=== PATIENT | male | born 1975 | race Caucasian/White ===

== ENCOUNTER 2017-10-01 07:23 | Day surgery (SDC) | payer OTHER ==
[~2017-10-01] VITALS: Ht 188 cm; Wt 89.4 kg
[~2017-10-01 07:23] MED LIST: Multivitamin1 EAC1 PO; SUCR1 PO; ZOLM5 PO
== END 2017-10-01 22:52 | disposition home or self-care (01) ==
LOC: ORSCMMR 07:23 → ORD 08:45 → ORSCMMR 08:45
PROVIDERS: Surgery
PROC: 0YU50JZ Supplement Right Inguinal Region with Synthetic Substitute, Open Approach (ICD-10-PCS; principal; 2017-10-01 08:45)
DX: K40.90 Unilateral inguinal hernia, without obstruction or gangrene, not specified as recurrent (principal); Z79.899 Other long term (current) drug therapy
CPT/HCPCS: C1781; J0690; J1100; J1885; J2250; J2405; J3010; J7120

== ENCOUNTER → 2023-03-09 | Outpatient (CLI) | payer OTHER | LOC: LAB 17:20 → LAB SHORT 17:20 | DX: R31.0 Gross hematuria (principal); K14.0 Glossitis; R10.2 Pelvic and perineal pain; Z98.52 Vasectomy status | CPT/HCPCS: 87070; 87086; 87205 ==